=== PATIENT | female | born 1970 | race Caucasian/White ===

== ENCOUNTER → 2019-12-06 | Outpatient (CLI) | payer OTHER | LOC: LABMALL 09:08 | DX: U07.1 COVID-19 (principal); E03.9 Hypothyroidism, unspecified; E06.3 Autoimmune thyroiditis; M32.8 Other forms of systemic lupus erythematosus; R52 Pain, unspecified; D75.1 Secondary polycythemia; R53.82 Chronic fatigue, unspecified; E83.51 Hypocalcemia; Z79.899 Other long term (current) drug therapy ==